=== PATIENT | female | born 1995 | race Caucasian/White ===

== ENCOUNTER 2017-02-20 18:06 | Emergency (ER) | payer OTHER ==
[~2017-02-20] VITALS: Ht 162.6 cm; Wt 118.9 kg
[2017-02-20 18:23] VITALS: TEMP 36.7; Ht 162.6 cm; Wt 118.9 kg
[2017-02-20] MEDS ORDERED: ONDANSETRON INJ 2 MG/ML 2 ML VIAL IV STA (19:01)
[2017-02-20] MEDS ORDERED: SODIUM CHLORIDE 0.9% 1000ML 1,000 ML IV STA (19:01)
[2017-02-20] MEDS ORDERED: SIMETHICONE 80 MG CHEW PO STA (19:01)
[2017-02-20 19:41] LABS: URINE APPEARANCE CLEAR (CLEAR); URINE BILIRUBIN NEG (NEG); URINE COLOR YELLOW; URINE NITRITE NEG (NEG); URINE SPECIFIC GRAVITY 1.021 (1.000-1.030); UROBILINOGEN NEG (NEG); ZZUR CULT IF INDIC CLEAN CATCH NO
[2017-02-20 19:46] LABS: HEMATOCRIT 43.6 % (37-47); MEAN CELL VOLUME 90.1 fL (80-100); MEAN CORPUSCULAR HEMOGLOBIN 31.6 pg (25-34); MEAN CORPUSCULAR HGB CONC 35.1 g/dl (32-36); MEAN PLATELET VOLUME 9.1 fL (7.4-10.4); PLATELET COUNT 302 K/uL (130-400); RED BLOOD COUNT 4.84 M/uL (4.2-5.4); WHITE BLOOD COUNT 13.94 K/uL (4.8-10.8)
[2017-02-20 19:49] LABS: MANUAL MICROSCOPIC REQUIRED? NO; REVIEW REQ? NO
[2017-02-20 20:17] LABS: ALKALINE PHOSPHATASE 82 U/L (45-117); ALT/SGPT 42 U/L (12-78); AST/SGOT 26 U/L (15-37); BLOOD UREA NITROGEN 15 mg/dl (7-18); BUN/CREATININE RATIO 19.6 (10-20); CALCIUM 9.8 mg/dl (8.5-10.1); CARBON DIOXIDE 24 mmol/L (21-32); CHLORIDE 107 mmol/L (98-107); CREATININE 0.76 mg/dl (0.60-1.20); GLUCOSE 97 mg/dl (70-99); POTASSIUM 4.2 mmol/L (3.5-5.1); SODIUM 139 mmol/L (136-145)
[2017-02-20 20:49] LABS: COMPLETE YES; EOSINOPHIL % 1.7 %; LYMPH ABS # 4.85 K/uL (1.2-3.4); LYMPHOCYTE % 34.8 %; META ABS # 0.24 K/uL (0-0); METAMYELOCYTE % 1.7 %; NEUTROPHILS % 58.3 %
--- NOTE | 2017-02-20 21:15 | EMERGENCY ROOM VISIT NOTE ---
History First contact with patient: 18:47 Chief Complaint: GI ASSESSMENT Stated Complaint: ABDOMINAL SWELLING/FEELING EXTREMELY FULL Nursing Triage Summary: Pt stated that for the last month she has been becoming very bloated. Pt states that it will come out of nowhere. Pt denies any nausea or vomiting. Pt states that over the last day she has decreased appetite, pain in the lower right quadrant. Pts abdomen is soft, tenderness noted in the lower right quadrant. Pt states pain is intermittent and sharp. Pt states that she has been having more bowel movement that her normal but denies any diarrhea. Bowel sounds are hypoactive x4. History of Present Illness The patient is a 21 year old female who presents to the Emergency Room with complaints of abdominal bloating for the past month that has been getting progressively worse. She states she gets occasional abdominal cramps with this but they only last a few minutes and go away. She has had diarrhea for the past several days, 3-4 episodes a day. She denies any blood in the stool. She denies any fevers or chills, abdominal pain, vomiting, but states she has had intermittent nausea and a decreased appetite for the past month as well. She states, "every time I start to eat, I get bloated and then I feel like I can't eat anymore." She states she recently had Nexplanon implanted control removed on 01/26, she states she has not resumed getting her periods yet. She states she is sexually active and could be , she has not been using alternative forms of control since having this removed. She has not seen her PCP for these symptoms. She states she came today because her mother was concerned about how long she had been having her symptoms and thought that her abdomen was especially bloated today. Review of Systems A complete 10 point review of systems was reviewed with the patient with pertinent positives and negatives as per history of present illness. All else were negative. Past Medical/Surgical History No significant past medical or surgical history. Social History Smoking Status: Current Every Day Smoker Alcohol Use: occasionally Drug Use: none (Mari) Current/Historical Medications No Active Prescriptions or Reported Meds Allergies Coded Allergies: Acetaminophen (Unverified Allergy, Intermediate, rash, 02/20/17) Hydrocodone (Unverified Allergy, Intermediate, rash, 02/20/17) Physical Exam Vital Signs Date Time Temp Pulse Resp B/P (MAP) Pulse Ox O2 Delivery O2 Flow Rate FiO2 02/20/17 22:33 82 18 127/80 97 02/20/17 20:49 98 18 125/78 95 02/20/17 20:26 100 21 125/78 100 Room Air 02/20/17 19:55 97 02/20/17 18:23 36.7 101 20 143/86 93 Room Air Physical Exam CONSTITUTIONAL: No acute distress. Well hydrated, well appearing and well nourished. Alert and oriented X 4 with normal affect. HEENT: Normocephalic, atraumatic. Pupils equal, round and reactive to light, EOMI. TMs normal. Pharynx normal. Moist mucous membranes. NECK: Supple, full active range of motion without discomfort. RESPIRATORY: Clear to auscultation bilaterally with no wheezing, crackles, rhonchi or stridor. Equal expansion bilaterally. CARDIOVASCULAR: Regular rate and rhythm with no murmurs, rubs or gallops. Normal peripheral perfusion. No edema. GASTROINTESTINAL: Soft, nontender, obese. No rebound tenderness or guarding. Bowel sounds present in all quadrants. MUSCULOSKELETAL: Full range of motion of all joints without discomfort. INTEGUMENTARY: No rash or other significant dermatologic conditions noted. NEUROLOGIC: Cranial nerves II-XII grossly intact. No focal neurologic deficits noted. Medical Decision & Procedures Laboratory Results 02/20/17 19:32 Red Blood Count 4.84, Mean Corpuscular Volume 90.1, Mean Corpuscular Hemoglobin 31.6, Mean Corpuscular Hemoglobin Concent 35.1, Mean Platelet Volume 9.1 02/20/17 19:32 Test 02/20/17 19:10 02/20/17 19:32 Urine Color YELLOW Urine Appearance CLEAR (CLEAR) Urine pH 6.0 (4.5-7.5) Urine Specific [place] 1.021 (1.000-1.030) Urine Protein NEG (NEG) Urine Glucose (UA) NEG (NEG) Urine Ketones NEG (NEG) Urine Occult Blood NEG (NEG) Urine Nitrite NEG (NEG) Urine Bilirubin NEG (NEG) Urine Urobilinogen NEG (NEG) Urine Leukocyte Esterase NEG (NEG) Urine Test NEG (NEG) White Blood Count 13.94 K/uL (4.8-10.8) Red Blood Count 4.84 M/uL (4.2-5.4) Hemoglobin 15.3 g/dL (12.0-16.0) Hematocrit 43.6 % (37-47) Mean Corpuscular Volume 90.1 fL (80-100) Mean Corpuscular Hemoglobin 31.6 pg (25-34) Mean Corpuscular Hemoglobin Concent 35.1 g/dl (32-36) Platelet Count 302 K/uL (130-400) Mean Platelet Volume 9.1 fL (7.4-10.4) RDW Standard Deviation 43.3 fL (36.4-46.3) RDW Coefficient of Variation 13.2 % (11.5-14.5) Neutrophils % (Manual) 58.3 % Lymphocytes % (Manual) 34.8 % Monocytes % (Manual) 3.5 % Eosinophils % (Manual) 1.7 % Metamyelocytes % 1.7 % Neutrophils # (Manual) 8.13 K/uL (1.4-6.5) Total Absolute Neutrophils 8.13 K/uL (1.4-6.5) Lymphocytes # (Manual) 4.85 K/uL (1.2-3.4) Total Absolute Lymphocytes 4.85 K/uL (1.2-3.4) Monocytes # (Manual) 0.49 K/uL (0.11-0.59) Eosinophils # (Manual) 0.24 K/uL (0-0.5) Metamyelocytes # 0.24 K/uL (0-0) Anion Gap 8.0 mmol/L (3-11) Est Creatinine Clear Calc Drug Dose 148.6 ml/min Estimated GFR () 130.0 Estimated GFR (Non- 112.1 BUN/Creatinine Ratio 19.6 (10-20) Calcium Level 9.8 mg/dl (8.5-10.1) Total Bilirubin 0.2 mg/dl (0.2-1) Direct Bilirubin mg/dl (0-0.2) Aspartate Amino Transf (AST/SGOT) 26 U/L (15-37) Alanine Aminotransferase (ALT/SGPT) 42 U/L (12-78) Alkaline Phosphatase 82 U/L (45-117) Total Protein 7.2 gm/dl (6.4-8.2) Albumin 3.7 gm/dl (3.4-5.0) Lipase 104 U/L (73-393) Chemistry Specimen Hemolysis Medications Administered Medications (Trade) Dose Ordered Sig/Eliseo Route Start Time Stop Time Status Last Admin Dose Admin Sodium Chloride 1,000 ml @ 999 mls/hr Q1H1M STAT IV 02/20/17 19:01 02/20/17 20:01 DC 02/20/17 19:40 999 MLS/HR Ondansetron HCl (Zofran Inj) 4 mg NOW STAT IV 02/20/17 19:01 02/20/17 19:06 DC 02/20/17 19:46 4 MG Simethicone (Mylicon Chew Tab) 160 mg NOW STAT PO 02/20/17 19:01 02/20/17 19:06 DC 02/20/17 19:44 160 MG Medical Decision CC: Patient presenting with complaint of abdominal bloating and nausea Interpretation of Labs: Leukocytosis, no anemia, no significant electrolyte abnormalities, normal renal function, normal liver enzymes and lipase. UA negative, negative urine . Differential Diagnosis: Includes, but not limited to abdominal bloating, gastroenteritis, weight gain, fluid retention, hormonal changes, dehydration, electrolyte abnormality. Medication Reconciliation: I attest that I have personally reviewed the patient' s current medication list. Vital signs review: I reviewed the patient's vital signs and interpret them as follows: T: Afebrile; BP: Hypertensive, improved on recheck; HR: Tachycardic; RR: Within normal limits; Pulse Ox: WNL on RA. Summary: Patient was evaluated at bedside, history of physical exam performed. Patient is alert and in no acute distress, resting calmly in stretcher. Patient complaining of abdominal bloating, she does have an obese abdomen, but the abdomen is soft and nondistended, no abdominal tenderness on exam. Orders were placed at bedside for labs, UA and , IV fluids for hydration, Zofran for nausea. Patient describes her symptoms seemed to get worse with eating, I suspect she may be having some bloating and discomfort from intestinal gas. Simethicone ordered for this. Patient discussed with Dr. Blood, who agrees with my assessment and plan. Labs reviewed as above, leukocytosis noted, otherwise unremarkable. Negative urine . Given her history of diarrhea recently, I suspect she may have a viral gastroenteritis that would account for the leukocytosis. I do not suspect appendicitis or ovarian pathology at this time, as patient's abdomen is completely nontender on exam, and she has had ongoing symptoms for over a month. However, the patient states she is worried about appendicitis and wants to be checked. I discussed risks vs benefits with the patient, she agreed and wants to have a CT scan done, so this was ordered. Nursing staff later notified me that the patient's IV site was not functioning for contrast while at CT, patient was sent back to room for a new IV. Patient is now refusing another IV. I went to speak with the patient, she is visibly upset about the IV issue. I offered to do CT scan without IV contrast, patient states, "I don't want to have anything else done, I just want to go." I discussed with the patient that I still do have a low suspicion for appendicitis based on her ongoing symptoms and lack of exam findings of abdominal tenderness. Patient was reassessed multiple times throughout ED stay, abdomen remained nontender and she did report improved bloating and discomfort after simethicone. Tachycardia resolved with IV fluids. Her nausea is also gone and she is tolerating PO fluids well. I discussed worsening symptoms that should prompt the patient to return for evaluation, she verbalized understanding. I also encouraged her to follow up with her PCP regarding her abdominal bloating , for further management. Patient was discharged home in stable condition and ambulatory. Impression Primary Impression: Abdominal bloating Departure Information Dispostion Home / Self-Care Condition GOOD Prescriptions No Active Prescriptions or Reported Meds Referrals Tracey Lugo (PCP) Patient Instructions ED Gas Bloating, My [facility] Additional Instructions You have been treated in the Emergency Department your Abdominal Bloating. Laboratory results have ruled out any emergent causes for your abdominal pain which would warrant further workup or admission. Simethicone as needed for gas and abdominal bloating. This medication is available [id number]. Please take as directed. Drink plenty of water and stay well hydrated. Please follow-up with your primary care provider in the next 2-3 days for recheck. Return to the emergency department if your symptoms persist or worsen, especially if you develop worsening abdominal pain, severe nausea or vomiting, fevers or chills, blood in your stool or urine, or any other concerns.
[2017-02-20 22:33] VITALS: BP 127/80; PULSE 82; O2SAT 97
== END 2017-02-20 22:36 | disposition home or self-care (01) ==
LOC: C.EDB 18:09
DX: R14.0 Abdominal distension (gaseous) (principal); R00.0 Tachycardia, unspecified; R11.0 Nausea; F17.200 Nicotine dependence, unspecified, uncomplicated; Z88.6 Allergy status to analgesic agent